=== PATIENT | male | born 1950 | race Caucasian/White ===

== ENCOUNTER 2016-11-27 10:25 | Inpatient (IN) | payer OTHER ==
[2016-11-27] MEDS ORDERED: SODIUM CHLORIDE 0.9% 10 ML FLUSH FLUSH PRN (11:40)
[2016-11-27] MEDS ORDERED: DILTIAZEM 25 MG/5 ML VIAL IV ONE ×2 (11:45→11:46)
--- NOTE | 2016-11-27 11:52 | EDPRACDOC ---
- General Information Information Source: Patient Mode Of Arrival: Car - History of Present Illness Onset: 3 WEEKS HPI: Pt c/o bilateral leg swelling x 3 weeks. Pt states increased SOB, generalized weakness, NELSON. Denies fever, cough, congestion, cp, abd pain, n/v, changes in bowel or bladder, rash. Pt states currently on 40mg lasix daily. Denies hx of A fib Mechanism: Reports: Unknown Circumstances: Reports: Spontaneous History of: Reports: None Severity: Reports: Moderate, Severe Able to Bear Weight: Limited Associated Signs & Symptoms: Reports: Swelling Pain In: Reports: Foot, Ankle, Leg, Knee <Noemí Hayden - Last Filed: 11/27/16 13:15> <Jonny Domingo - Last Filed: 11/27/16 14:05> - General Information Chief Complaint: Generalized Weakness Stated Complaint: EXTRIMITY PAIN/SWELLING Home Medications: Home Medications Glimepiride [Amaryl] 4 mg PO DAILY 11/30/12 MetFORMIN (Immediate Release) [GLUCOPHAGE Immed Release] 1,000 mg PO BID Valsartan [Diovan] 40 mg PO DAILY 11/30/12 Warfarin Sodium [Coumadin] 10 mg PO DAILY 11/30/12 Ferrous Sulfate [Feosol] 325 mg PO DAILY 11/27/16 Furosemide [Lasix] 20 mg PO DAILY 11/27/16 Allergies/Adverse Reactions: Allergies Allergy/AdvReac Type Severity Reaction Status Date / Time No Known Allergies Allergy Verified 11/27/16 13:21 ED Past Medical History - History Reviewed Yes Nurses notes reviewed and agree except as marked - Patient Medical History Neurological History: Reports: Cerebrovascular Accident Cardiac History: Reports: Hypertension, Cardiac Catheterization Systemic History: Reports: Cancer Surgical History: Reports: Cardiac Catheterization - Family Medical History Reports: Hypertension (daughter), Cancer (father-lung, mother, pancreatatic), Cardiac Disorders (grandfather-[place]). Denies: Diabetes, Stroke <Noemí Hayden - Last Filed: 11/27/16 13:15> EDM Review of Systems - Review of Systems Constitutional: Weakness Ears: No Symptoms Reported. negative: Pain, Hearing Loss, Drainage, Ear Pulling Throat: No Symptoms Reported. negative: Pain, Swelling Nose: No Symptoms Reported. negative: Congestion, Bleeding, Discharge, Injection, Swelling, Deformity, Ecchymosis, Tender, Abrasion, Laceration Mouth: No Symptoms Reported. negative: Pain, Drooling Respiratory: Shortness of Breath Cardiovascular: Edema. negative: No Symptoms Reported, Chest Pain, Cyanosis, Orthopnea, Palpitations, PND, Syncope, Skin Mottling Gastrointestinal: No Symptoms Reported. negative: Pain, Constipation, Nausea, Vomiting, Diarrhea, Melena, Formula Intolerance Genitourinary: No Symptoms Reported. negative: Dysuria, Hematuria, Frequency, Discharge, Bleeding, Testicular Pain, Neurological: No Symptoms Reported. negative: Headache, Dizziness, Seizure, Numbness, Weakness, Speech Difficulty, Gait Difficulty Musculoskeletal: Leg. negative: No Symptoms Reported, Arm, Ankle, Back, Chestwall, Elbow, Forearm, Femur, Foot, Hand, Hip, Knee, Neck, Pelvis, Ribs, Shoulder, Wrist Integumentary: No Symptoms Reported. negative: Itching, Rash, Bruising, Wound Allergic/Immunologic: No Symptoms Reported. negative: Hives, Itching Hematologic: No Symptoms Reported. negative: Lymphadenopathy, Easy Bruising, Easy Bleeding Psychiatric: No Symptoms Reported. negative: Anxiety, Depression, Hallucinations, Insomnia, Suicidal <Hayden,Kate Denae - Last Filed: 11/27/16 13:15> - Physical Exam Constitutional: Alert, Distress (moderate) Oriented to: Time, Person, Place Last recorded Vital Signs: Last Vital Signs Temp 97.5 F 11/27/16 11:16 Pulse 155 H 11/27/16 11:16 Resp 18 11/27/16 11:16 BP 249/144 H 11/27/16 11:16 Pulse Ox Oxygen Pulse Oxygen Saturation O2 Device Room Air Oxygen Flow Rate Fraction of Inspired Oxygen ( FIO2) - HEENT Head: Normal ( normocephalic) Eye Exam: Normal (PERRL, EOMI, Sclera white) Neck: Normal (FROM, trachea at midline) - Respiratory/Cardiovascular Respiratory: Rales Cardiovascular: Tachycardia, Irregular - GI Auscultation: Normal (NABS) Palpation: Normal (Soft,No rebound or guarding, non distended) Tenderness: Non tender - Musculoskeletal Back: Normal (Non-Tender) Extremities: Edema (+3 pitting edema bilateral legs, bilateral hands +1 edema) - Integumentary Skin: Normal, Warm, Dry Lymphatics: Normal (no adenopathy) - Neurologic Memory Impaired: Normal Motor Function: Normal (Normal tone, Pulses 2+ No cyanosis or edema, FROM) Mood Description: Normal Perception: Normal <Noemí Hayden - Last Filed: 11/27/16 13:15> - Physical Exam Last recorded Vital Signs: Last Vital Signs Temp 97.5 F 11/27/16 11:16 Pulse 126 H 11/27/16 13:16 Resp 19 11/27/16 13:16 BP 94/52 L 11/27/16 13:16 Pulse Ox 99 11/27/16 13:16 Oxygen Pulse Oxygen Saturation 99 O2 Device Nasal Cannula Oxygen Flow Rate 2 Fraction of Inspired Oxygen ( FIO2) <Jonny Domingo - Last Filed: 11/27/16 14:05> ED Low Extremities Phys Exam - Knee Bilateral Knee Symptoms: Swelling Knee Ligaments: Normal Knee Meniscus: Normal - Lower Leg Bilateral Lower Leg Symptoms: Swelling, Moderate Tenderness - Foot Bilateral Foot Symptoms: Swelling - Ankle Bilateral Ankle Symptoms: Swelling Achilles Tendon: Normal - Deficits Deficits: None - Integumentary Bilateral Lower Leg Skin: Normal Lymphatics: Normal <Noemí Hayden - Last Filed: 11/27/16 13:15> - Differential Diagnosis Other (CHF, AFIB, resp distress) - Results 11/27/16 11:25 11/27/16 11:25 11/27/16 13:13 Laboratory Results - last 24 hr 11/27/16 11/27/16 11/27/16 11:25 11:25 12:05 WBC 9.4 RBC 3.90 L Hgb 9.4 L Hct 30.3 L MCV 78 L MCH 24.0 L MCHC 31.0 L RDW 19.1 H Plt Count 390 MPV 8.4 Neut % (Auto) 81.4 H Lymph % (Auto) 11.7 L [place] % (Auto) 6.3 Eos % (Auto) 0.2 Baso % (Auto) 0.4 Absolute Neuts (auto) 7.61 Absolute Lymphs (auto) 1.03 Puncture Site Right radial pH 7.450 pCO2 25.0 L pO2 84.0 HCO3 17.4 L Total CO2 18.2 L Base Excess -4.9 L FiO2 % Room air Specimen Drawn By Davegi Sodium 132 L Potassium 4.2 Chloride 99 Carbon Dioxide 19 L Anion Gap 18 H BUN 45 H Creatinine 1.20 Estimated GFR (MDRD) > 60 Glucose 259 H Calculated Osmolality 276 Lactic Acid Calcium 8.9 Corrected Calcium 9.6 Total Bilirubin 3.1 H AST 42 ALT 77 H Alkaline Phosphatase 92 Creatine Kinase 84 Troponin I 0.03 Snz-A-Rjfevydlwmh Pept 7040 H Total Protein 6.4 Albumin 3.3 L 11/27/16 12:15 WBC RBC Hgb Hct MCV MCH MCHC RDW Plt Count MPV Neut % (Auto) Lymph % (Auto) [place] % (Auto) Eos % (Auto) Baso % (Auto) Absolute Neuts (auto) Absolute Lymphs (auto) Puncture Site pH pCO2 pO2 HCO3 Total CO2 Base Excess FiO2 % Specimen Drawn By Sodium Potassium Chloride Carbon Dioxide Anion Gap BUN Creatinine Estimated GFR (MDRD) Glucose Calculated Osmolality Lactic Acid 3.6 H Calcium Corrected Calcium Total Bilirubin AST ALT Alkaline Phosphatase Creatine Kinase Troponin I Umg-Y-Ahmakfzfwkl Pept Total Protein Albumin - EKG EKG #1 EKG Time: 11:27 Rate: bpm: 148 [place]: LAD Rhythm: Afib (with RVR) Block: None ST: Nonsp Comparison: 11/30/12 - Diagnostic Imaging Chest Image interpreted by: Radiologist IMPRESSION: No acute cardiopulmonary abnormality seen. <Noemí Hayden - Last Filed: 11/27/16 13:15> - Results 11/27/16 11:25 11/27/16 11:25 WBC 9.4 xk/uL (3.8-10.8) 11/27/16 11:25 RBC 3.90 xM/uL (4.70-6.10) L 11/27/16 11:25 Hgb 9.4 g/dL (14.0-18.0) L 11/27/16 11:25 Hct 30.3 % (42-52) L 11/27/16 11:25 MCV 78 fL (80-94) L 11/27/16 11:25 MCH 24.0 pg (27-32) L 11/27/16 11:25 MCHC 31.0 g/dl (33-36) L 11/27/16 11:25 RDW 19.1 % (11.5-14.5) H 11/27/16 11:25 Plt Count 390 xk/uL (130-400) 11/27/16 11:25 MPV 8.4 fL (7.4-10.4) 11/27/16 11:25 Neut % (Auto) 81.4 % (45-76) H 11/27/16 11:25 Lymph % (Auto) 11.7 % (17-44) L 11/27/16 11:25 [place] % (Auto) 6.3 % (3-10) 11/27/16 11:25 Eos % (Auto) 0.2 % (0-5) 11/27/16 11:25 Baso % (Auto) 0.4 % (0-2) 11/27/16 11:25 Absolute Neuts (auto) 7.61 xk/uL (1.7-8.2) 11/27/16 11:25 Absolute Lymphs (auto) 1.03 xk/uL (0.65-4.75) 11/27/16 11:25 PT > 200.0 SEC (9.2-11.2) H 11/27/16 11:25 INR > 20.0 H* 11/27/16 11:25 APTT 70.4 SEC (22-35) H 11/27/16 11:25 Puncture Site Right radial 11/27/16 12:05 pH 7.450 pH UNITS (7.35-7.45) 11/27/16 12:05 pCO2 25.0 mmHg (35-45) L 11/27/16 12:05 pO2 84.0 mmHg (80-100) 11/27/16 12:05 HCO3 17.4 MMOL/L (22-26) L 11/27/16 12:05 Total CO2 18.2 MMOL/L (23-27) L 11/27/16 12:05 Base Excess -4.9 (+/- 2) L 11/27/16 12:05 FiO2 % Room air 11/27/16 12:05 Specimen Drawn By Allgi 11/27/16 12:05 Sodium 132 mEq/L (137-146) L 11/27/16 11:25 Potassium 4.2 mEq/L (3.5-5.1) 11/27/16 11:25 Chloride 99 mEq/L (98-107) 11/27/16 11:25 Carbon Dioxide 19 mMOL/L (22-33) L 11/27/16 11:25 Anion Gap 18 mEq/L (8-16) H 11/27/16 11:25 BUN 45 MG/DL (9-20) H 11/27/16 11:25 Creatinine 1.20 MG/DL (0.66-1.25) 11/27/16 11:25 Estimated GFR (MDRD) > 60 mL/min (>=60) 11/27/16 11:25 Glucose 259 MG/DL (70-99) H 11/27/16 11:25 Calculated Osmolality 276 MOs/Kg (270-290) 11/27/16 11:25 Lactic Acid 3.6 mEq/L (0.7-2.1) H 11/27/16 12:15 Calcium 8.9 MG/DL (8.4-10.2) 11/27/16 11:25 Corrected Calcium 9.6 MG/DL (8.4-10.2) 11/27/16 11:25 Total Bilirubin 3.1 MG/DL (0.2-1.3) H 11/27/16 11:25 AST 42 IU/L (17-59) 11/27/16 11:25 ALT 77 IU/L (21-72) H 11/27/16 11:25 Alkaline Phosphatase 92 IU/L (50-160) 11/27/16 11:25 Creatine Kinase 84 IU/L (55-170) 11/27/16 11:25 Troponin I 0.03 ng/mL (<.04) 11/27/16 11:25 Gmy-G-Yfabxbovdzb Pept 7040 pg/mL (0-900) H 11/27/16 11:25 Total Protein 6.4 G/DL (6.3-8.2) 11/27/16 11:25 Albumin 3.3 G/DL (3.5-5.0) L 11/27/16 11:25 Lab Results 11/27/16 11/27/16 11/27/16 12:15 12:05 11:25 WBC RBC Hgb Hct MCV MCH MCHC RDW Plt Count MPV Neut % (Auto) Lymph % (Auto) [place] % (Auto) Eos % (Auto) Baso % (Auto) Absolute Neuts (auto) Absolute Lymphs (auto) PT > 200.0 H INR > 20.0 H* APTT 70.4 H Puncture Site Right radial pH 7.450 pCO2 25.0 L pO2 84.0 HCO3 17.4 L Total CO2 18.2 L Base Excess -4.9 L FiO2 % Room air Specimen Drawn By Allgi Sodium Potassium Chloride Carbon Dioxide Anion Gap BUN Creatinine Estimated GFR (MDRD) Glucose Calculated Osmolality Lactic Acid 3.6 H Calcium Corrected Calcium Total Bilirubin AST ALT Alkaline Phosphatase Creatine Kinase Troponin I Yeu-K-Gcqsapyvcod Pept Total Protein Albumin 11/27/16 11/27/16 11:25 11:25 WBC 9.4 RBC 3.90 L Hgb 9.4 L Hct 30.3 L MCV 78 L MCH 24.0 L MCHC 31.0 L RDW 19.1 H Plt Count 390 MPV 8.4 Neut % (Auto) 81.4 H Lymph % (Auto) 11.7 L [place] % (Auto) 6.3 Eos % (Auto) 0.2 Baso % (Auto) 0.4 Absolute Neuts (auto) 7.61 Absolute Lymphs (auto) 1.03 PT INR APTT Puncture Site pH pCO2 pO2 HCO3 Total CO2 Base Excess FiO2 % Specimen Drawn By Sodium 132 L Potassium 4.2 Chloride 99 Carbon Dioxide 19 L Anion Gap 18 H BUN 45 H Creatinine 1.20 Estimated GFR (MDRD) > 60 Glucose 259 H Calculated Osmolality 276 Lactic Acid Calcium 8.9 Corrected Calcium 9.6 Total Bilirubin 3.1 H AST 42 ALT 77 H Alkaline Phosphatase 92 Creatine Kinase 84 Troponin I 0.03 Fic-Q-Ttcnzbwgcwk Pept 7040 H Total Protein 6.4 Albumin 3.3 L - Diagnostic Imaging Chest MD NOTE REPEATEDLY ASKED FOR BP'S; PT HAS AFIB AND ON A CARDIZEM DRIP <Jonny Domingo - Last Filed: 11/27/16 14:05> - Departure Disposition: Admit IP To This Hospital Education/Counseling Given To: Patient Education/Counseling Given Regarding: Diagnosis, Treatment Decision to Admit Time: 13:14 Decision to admit date: 11/27/16 Decision to admit: from ED - Physician Consulted Hospitalist Time Called: 13:14 Provider Called: Andree Sotelo (Dr Domingo contacted for admission) <Noemí Hayden - Last Filed: 11/27/16 13:15> - Departure Yes I personally saw and evaluated the patient. Disposition: Admit IP To This Hospital <Jonny Domingo - Last Filed: 11/27/16 14:05> - Departure Final Diagnosis: Atrial fibrillation with RVR, Pedal edema, Lactic acidosis, Supratherapeutic INR Instructions: Weakness (General), Atrial Fibrillation (ED) Referrals: Rosanna Hernández DO [Primary Care Provider] - One Week Forms: ED Discharge Instructions
[2016-11-27] MEDS ORDERED: NS 1,000 ML IV ONE ×2 (12:07→12:49)
[2016-11-27 12:09] LABS: ABG Draw Site Right Radial; ALLEN'S TEST PASS; BEb -4.9 (+/- 2); TCO2 18.2 MMOL/L (23-27)
[2016-11-27] MEDS: Diltiazem HCl 100 MG in D5W 100 ML IV SCH ×2 (12:16→21:12)
[2016-11-27 12:17] LABS: AUTOMATED BASOPHIL 0.4 % (0-2); AUTOMATED EOSINOPHIL 0.2 % (0-5); AUTOMATED LYMPH 11.7 % (17-44); AUTOMATED MONOCYTE 6.3 % (3-10); AUTOMATED NEUTROPHIL 81.4 % (45-76); MPV 8.4 fL (7.4-10.4)
[2016-11-27 12:27] LABS: BLOOD UREA NITROGEN 45 MG/DL (9-20); CALC CORRECTED 9.6 MG/DL (8.4-10.2); CALCIUM 8.9 MG/DL (8.4-10.2); CALCULATED OSMOLALITY 276 MOs/Kg (270-290); CHLORIDE 99 mEq/L (98-107); CPK TOTAL WITH POSSIBLE MB 84 IU/L (55-170); GLUCOSE 259 MG/DL (70-99); SODIUM LEVEL 132 mEq/L (137-146); TOTAL PROTEIN 6.4 G/DL (6.3-8.2)
[2016-11-27 12:32] LABS: PARTIAL THROMB. TIME 70.4 SEC (22-35)
--- NOTE | 2016-11-27 12:52 | DIRPT ---
CLINICAL DATA: Sepsis. EXAM: PORTABLE CHEST 1 VIEW COMPARISON: November 12, 2016. FINDINGS: Stable cardiomegaly. Status post cardiac valve repair. No pneumothorax or pleural effusion is noted. No acute pulmonary disease is noted. Bony thorax is unremarkable. IMPRESSION: No acute cardiopulmonary abnormality seen. Electronically Signed By: Zeyad Nielsen Jr, M.D. On: 11/27/2016 12:49
[2016-11-27 13:14] LABS: PT-INR > 20.0
[2016-11-27] MEDS ORDERED: PHYTONADIONE 10 MG in NS 50 ML IV ONE (13:30)
[2016-11-27] MEDS ORDERED: Albuterol/Ipratropium Neb 3 ML NEB NEB PRN (14:15)
[2016-11-27] MEDS ORDERED: GLUCAGON 1 MG VIAL SQ PRN (14:20)
[2016-11-27] MEDS ORDERED: DEXTROSE 25 GM/50 ML PFS IV PRN (14:20)
[2016-11-27] MEDS ORDERED: DIGOXIN 0.5 MG/2 ML (250 MCG /ML) AMPULE IV ONE (14:22)
[2016-11-27] MEDS ORDERED: PHYTONADIONE 5 MG TAB PO STA (14:23)
--- NOTE | 2016-11-27 14:27 | HISTPHYS ---
- Chief Complaint sob, weakness, - History of Present Illness 66 yowm presented to emergency room early on today for evaluation of progressivelly worsening leg swelling and dyspnea. Patient reports that he has gained quite a bit of weight lately, he has noticed progressively worsening swelling of both lower extremities. Recently he has been feeling profoundly weak tired and very fatigued, he also reports PND and orthopnea and profound dyspnea with minimal physical exertion. He denies any chest discomfort but reports episodes of palpitations and feeling dizzy and lightheaded, no syncope or near syncope. Upon arrival in ED patient was found to be in atrial fibrillation with rapid ventricular rate, he was also found massively fluid overloaded. His INR was found to be greater than 20. Medical consultation was phoned in for inpatient treatment. - Medical History Cardiac History: Reports: Coronary Artery Disease, Hypertension, Cardiac Catheterization, Hypercholesterolemia, Valvular Heart Disease Respiratory History: Reports: No Significant History, Pneumonia GI/ History: Reports: Gastroesophageal Reflux, BPH Musculoskeletal History: Reports: Osteoarthritis Systemic History: Reports: Cancer Neurological History: Reports: Cerebrovascular Accident Psychological History: Reports: Depression, Anxiety - Surgical History Reports: Cardiac Catheterization, Other (AVR in 1996, partial colectomy for colon cancer. Port placement and removal) - Medictions/Allergies Allergies No Known Allergies Allergy (Verified 11/27/16 13:21) Current Medication List: Reviewed Home Medications Glimepiride [Amaryl] 4 mg PO DAILY 11/30/12 MetFORMIN (Immediate Release) [GLUCOPHAGE Immed Release] 1,000 mg PO BID Valsartan [Diovan] 40 mg PO DAILY 11/30/12 Warfarin Sodium [Coumadin] 10 mg PO DAILY 11/30/12 Ferrous Sulfate [Feosol] 325 mg PO DAILY 11/27/16 Furosemide [Lasix] 20 mg PO DAILY 11/27/16 - Family History Reports: Hypertension (daughter), Cancer (father-lung, mother, pancreatatic), Cardiac Disorders (grandfather-[place]), Other (Father due to lung cancer mother due to pancreatic cancer). Denies: Diabetes, Stroke - Social History Lives: With Family Smoking Status: Never smoker - Review of Systems Constitutional: Diaphoresis, Fatigue, Loss of Appetite, Weakness, Weight gain Eyes: No Symptoms Reported Ears: No Symptoms Reported Nose: No Symptoms Reported Mouth: No Symptoms Reported Throat/Neck: No Symptoms Reported Respiratory: Cough, Shortness of Breath, Wheezing, Dyspnea Cardiovascular: Edema, Orthopnea, Palpitations, PND Gastrointestinal: Constipation, Heartburn Genitourinary: No Symptoms Reported, Nocturia Neurological: No Symptoms Reported Musculoskeletal:: Arthritis Integumentary: No Symptoms Reported Allergic/Immunologic: No Symptoms Reported Hematologic: No Symptoms Reported Endocrine: No Symptoms Reported Psychiatric: No Symptoms Reported - Physical Exam Vital Signs: Initial Vitals Temperature 97.5 F 11/27/16 11:16 Pulse Rate 155 H 11/27/16 11:16 Respiratory Rate 18 11/27/16 11:16 Blood Pressure 249/144 H 11/27/16 11:16 Constitutional: Alert, Distress Oriented to: Time, Person, Place - HEENT Head: Normal Eye: Normal Oropharynx: Normal ENT EAC: Normal TMJ: Normal Nose: No Symptoms Reported Respiratory: Accessory Muscle Use, Diminished, Rales, Wheezes Cardiovascular: Tachycardia, Irregular - GI Auscultation: Normal Palpation: Normal Tenderness: Non tender Rectal Exam: Deferred - Exam Deferred: Yes - Musculoskeletal Back: Normal Extremities: Edema Spine: limited range of motion - Integumentary Skin: Normal, Warm, Dry Lymphatics: Normal - Neurologic Memory Impaired: Normal Motor Function: Abnormal Cranial Nerve: Normal Cerebellar: Normal Mood Description: Anxious Thought: Coherent Perception: Normal - Focused CV Perfusion Exam Vital Signs: Last Vital Signs Temp 97.5 F 11/27/16 11:16 Pulse 117 11/27/16 14:17 Resp 18 11/27/16 14:17 BP 90/50 L 11/27/16 14:17 Pulse Ox 98 11/27/16 14:17 - Diagnostic Findings Initial Vitals Temperature 97.5 F 11/27/16 11:16 Pulse Rate 155 H 11/27/16 11:16 Respiratory Rate 18 11/27/16 11:16 Blood Pressure 249/144 H 11/27/16 11:16 Allergies No Known Allergies Allergy (Verified 11/27/16 13:21) Last Vital Signs Temp 97.5 F 11/27/16 11:16 Pulse 117 11/27/16 14:17 Resp 18 11/27/16 14:17 BP 90/50 L 11/27/16 14:17 Pulse Ox 98 11/27/16 14:17 11/27/16 11:25 11/27/16 11:25 Abnormal Lab Results 11/27/16 11/27/16 11/27/16 11:25 11:25 11:25 RBC 3.90 L Hgb 9.4 L Hct 30.3 L MCV 78 L MCH 24.0 L MCHC 31.0 L RDW 19.1 H Neut % (Auto) 81.4 H Lymph % (Auto) 11.7 L PT > 200.0 H INR > 20.0 H* APTT 70.4 H pCO2 HCO3 Total CO2 Base Excess Sodium 132 L Carbon Dioxide 19 L Anion Gap 18 H BUN 45 H Glucose 259 H Lactic Acid Total Bilirubin 3.1 H ALT 77 H Mlu-K-Bmwkykefzyu Pept 7040 H Albumin 3.3 L 11/27/16 11/27/16 12:05 12:15 RBC Hgb Hct MCV MCH MCHC RDW Neut % (Auto) Lymph % (Auto) PT INR APTT pCO2 25.0 L HCO3 17.4 L Total CO2 18.2 L Base Excess -4.9 L Sodium Carbon Dioxide Anion Gap BUN Glucose Lactic Acid 3.6 H Total Bilirubin ALT Aqt-X-Lowwlzcxgsf Pept Albumin Patient Name: VIKTORIYA DWYER LOC: ED : 1950 AGE: 66 Order Date:11/27/16 Date of Service: Report # [id number] Ord Physician: Noemí Hayden Exam # [id number] Emergency Physician: Will Domingo MD Exam(s): [id number] RAD/DG CHEST PORTABLE CLINICAL DATA: Sepsis. EXAM: PORTABLE CHEST 1 VIEW COMPARISON: November 12, 2016. FINDINGS: Stable cardiomegaly. Status post cardiac valve repair. No pneumothorax or pleural effusion is noted. No acute pulmonary disease is noted. Bony thorax is unremarkable. IMPRESSION: No acute cardiopulmonary abnormality seen. Electronically Signed EKG: afib,ns stt changes - Assessment (1) CHF, acute I50.9 - HEART FAILURE, UNSPECIFIED Acute Present on Admission: Yes Qualifiers: Congestive heart failure type: systolic Qualified Code(s): I50.21 - Acute systolic (congestive) heart failure Patient will be admitted to step-down unit. Treatment with IV diuretic will be instituted. CHF education will be provided. Monitor fluid balance and weight. 2D echo will be obtained along with a cardiology consultation. (2) Atrial fibrillation with RVR I48.91 - UNSPECIFIED ATRIAL FIBRILLATION Acute Present on Admission: Yes Continue IV Cardizem, keep K more than 4 magnesium more than 2. (3) Supratherapeutic INR R79.1 - ABNORMAL COAGULATION PROFILE Acute Present on Admission: Yes Vitamin K has been given to the patient. Recheck PT and INR morning (4) Anemia D64.9 - ANEMIA, UNSPECIFIED Acute Present on Admission: Yes Qualifiers: Anemia type: unspecified type Qualified Code(s): D64.9 - Anemia, unspecified Monitor counts obtain B12 folic acid and iron studies. (5) DM2 (diabetes mellitus, type 2) E11.9 - TYPE 2 DIABETES MELLITUS WITHOUT COMPLICATIONS Chronic Present on Admission: Yes Qualifiers: Diabetes mellitus complication status: with neurologic complications Continue oral agents and ADA diet ,continue sliding scale and Accu-Cheks. (6) UTI (urinary tract infection) N39.0 - URINARY TRACT INFECTION, SITE NOT SPECIFIED Acute Present on Admission: Yes Qualifiers: Urinary tract infection type: acute cystitis Hematuria presence: without hematuria Qualified Code(s): N30.00 - Acute cystitis without hematuria Await urine culture. Start IV Rocephin Case Care Discussed with: Patient, Consultants, Family, Nursing Staff Total Time: 60 min . Critical Care: No Code: 10314
[2016-11-27 15:55] LABS: FREE T3 2.23 pg/mL (2.77-5.27); FREE T4 1.33 ng/dL (0.78-2.19)
[2016-11-27 16:09] LABS: hTSH 3.88 uIU/mL (0.5-4.67)
--- NOTE | 2016-11-27 16:44 | CAPUECHO ---
INDICATION: CHF HEIGHT: 177.8 cm (5 ft 10.0 in) WEIGHT: 97.5 kg (215.0 lbs) BP: 90/50 BSA: 2.541011 m MEASUREMENTS 2D RVIDd: 3.9 cm LA Diam: 5.1 cm EF Biplane: 15.25 % LAESV MOD A4C: 65.4 ml LAESV MOD A2C: 84.9 ml LAESV Index (A-L): 39.72 ml/m M-MODE IVSd: 1.0 cm LVIDd: 6.3 cm LVPWd: 1.0 cm LVIDs: 5.7 cm EF(Teich): 18 % Ao Diam: 3.0 cm DOPPLER LVOT Vmax: 1.21 m/s AV Vmax: 1.72 m/s TR Vmax: 2.26 m/s TR maxP mmHg RVSP: 40.47 mmHg FINDINGS ------- Procedure:2D images, m-mode, color and spectral Doppler were obtained and reviewed. ECG rhythm:Atrial fibrillation. Study quality:This was a technically adequate study. Left Ventricle:The left ventricle is mildly dilated. Left ventricular wall thickness is normal. Overall left ventricular systolic function is severely impaired with, an EF < 20%. No regional wal l motion abnormalities were noted. Right Ventricle:The right ventricle is moderately enlarged. The right ventricular systolic functio n is severely impaired. Left Atrium:Left atrium is mildly dilated by volume. Right Atrium:The right atrium is markedly enlarged. ASD/VSD:Mobile interatrial septum. Aortic Valve:Normally functioning mechanical prosthetic valve. Mitral Valve:Normal appearing mitral valve. Moderate multi-jet mitral regurgitation is present. Tricuspid Valve:The tricuspid valve appears structurally normal. Mild tricuspid regurgitation pres ent. The right ventricular systolic pressure, as measured by Doppler, is 40 mmHg. Pulmonic Valve:The pulmonic valve is normal. Mild pulmonic regurgitation. Aorta:The aortic root, ascending aorta and aortic arch appear normal. IVC:The inferior vena cava is dilated with no significant inspiratory collapse which is consistent e stimated right atrial pressure of >20 mmHg. Pericardium:There is no pericardial effusion. CONCLUSIONS 1. Atrial fibrillation. 2. The left ventricle is mildly dilated. 3. Overall left ventricular systolic function is severely impaired with, an EF < 20%. 4. The right ventricle is moderately enlarged. 5. The right ventricular systolic function is severely impaired. 6. Left atrium is mildly dilated by volume. 7. The right atrium is markedly enlarged. 8. Normally functioning mechanical prosthetic valve. 9. Moderate multi-jet mitral regurgitation is present. 10. Mild tricuspid regurgitation present. Electronically Signed By: Zac Zurita MD -- Electronically Signed On: 16:44:13
[2016-11-27 17:09] LABS: LEUKOCYTES/URINE TRACE (NEGATIVE); NITRITE/URINE NEG (NEGATIVE); URINE OCCULT BLOOD NEG (NEG/TRACE)
[2016-11-27] MEDS: NS 1,000 ML IV SCH (17:59)
[2016-11-27] MEDS: REGULAR INSULIN 100 UNITS/ML - 3 ML VIAL SQ SCH ×2 (18:16→23:12)
[2016-11-27] MEDS: POTASSIUM CHLORIDE 20 MEQ TAB PO SCH (18:17)
[2016-11-27] MEDS: MetFORMIN 1000 MG IMMED REL TAB PO SCH (18:17)
--- NOTE | 2016-11-27 18:19 | PCM.CARDCO ---
Consultation Date: 11/27/16 Requesting Physician: Jean Kennedy Worker'S Compensation Claims Examiner: Zac Zurita Consult Reason: CHF - History of Present Illness Patient is a 66-year-old male. He has past medical history of aortic valve replacement which she says was approximately 2 decades ago. He came into the hospital with shortness of breath and was found to be in congestive heart failure. He has gross anasarca and seems like has not taken good care of himself. He does not see the booking officer on a regular basis and tells me that he is to see 1 of my partners many years ago. At the time of my evaluation is alert awake oriented comfortable and in no distress and his is at the bedside. He denies any chest pain. Chief Complaint: sob, weakness, - Past Medical and Surgical History Cardiac History: Reports: Hypertension, Cardiac Catheterization Psychological History: Denies: Depression Neurological History: Reports: Cerebrovascular Accident (1999) Past Surgical History: Reports: Cardiac Catheterization Allergies No Known Allergies Allergy (Verified 11/27/16 13:21) Home Medications Glimepiride [Amaryl] 4 mg PO DAILY 11/30/12 MetFORMIN (Immediate Release) [GLUCOPHAGE Immed Release] 1,000 mg PO BID Valsartan [Diovan] 40 mg PO DAILY 11/30/12 Warfarin Sodium [Coumadin] 10 mg PO DAILY 11/30/12 Ferrous Sulfate [Feosol] 325 mg PO DAILY 11/27/16 Furosemide [Lasix] 20 mg PO DAILY 11/27/16 - Social History Travel Outside of [place] in the Last 3 Months?: No Smoking Status: Never smoker - Family History Reports: Hypertension (daughter), Cancer (father-lung, mother, pancreatatic), Cardiac Disorders (grandfather-[place]). Denies: Diabetes, Stroke - Review of Systems Constitutional: Weakness - Physical Exam Constitutional: Alert, Distress (moderate) Oriented to: Time, Person, Place Exam: Last Vital Signs Temp 97.5 F 11/27/16 11:16 Pulse 100 11/27/16 18:13 Resp 17 11/27/16 18:13 BP 88/58 L 11/27/16 18:13 Pulse Ox 98 11/27/16 18:13 - HEENT Head: Normal ( normocephalic) Eye: Normal (PERRL, EOMI, Sclera white) Nose: No Symptoms Reported. negative: Congestion, Bleeding, Discharge, Injection, Swelling, Deformity, Ecchymosis, Tender, Abrasion, Laceration - Respiratory/Cardiovascular Respiratory: Rales Cardiovascular: Other (Cardiac auscultation S1-S2 irregular 2/6 systolic murmur at the apex. Prosthetic valve metallic sounds heard) - GI Auscultation: Normal (NABS) Palpation: Normal (Soft,No rebound or guarding, non distended) Tenderness: Non tender - Musculoskeletal Back: Normal (Non-Tender) Extremities: Edema (+3 pitting edema bilateral legs, bilateral hands +1 edema) - Integumentary Skin: Normal, Warm, Dry Lymphatics: Normal (no adenopathy) - Neurologic Memory Impaired: Normal Mood Description: Normal Perception: Normal - Other Exam Other Exam Findings: Abdomen is nontender. No cyanosis or clubbing on extremity evaluation. There is 3+ pedal edema. Patient moves all extremities. - Assessment/Plan (1) Atrial fibrillation with RVR I48.91 - UNSPECIFIED ATRIAL FIBRILLATION Acute Comment: Heart rates are markedly elevated. This is contributing to his congestive heart failure issues. Patient is on diltiazem drip and we will continue this. Once his heart rates are better I will discontinue the drip and once his better from congestive heart failure I wish to begin him on carvedilol in view of his advanced cardiomyopathy. (2) CHF, acute I50.9 - HEART FAILURE, UNSPECIFIED Acute systolic I50.21 - Acute systolic (congestive) heart failure Comment: Patient is in significant congestive heart failure and is receiving diuretic therapy appropriately and we will continue this. Congestive heart failure education was given to him and his at length. Precautions were advised. (3) DM2 (diabetes mellitus, type 2) E11.9 - TYPE 2 DIABETES MELLITUS WITHOUT COMPLICATIONS Acute with neurologic complications Comment: Diet was discussed. (4) Supratherapeutic INR R79.1 - ABNORMAL COAGULATION PROFILE Acute Comment: Monitored by the hospitalist. Patient has received vitamin K and will be followed closely especially in view of prosthetic metallic I will take well. (5) Cardiomyopathy I42.9 - CARDIOMYOPATHY, UNSPECIFIED Acute Comment: This finding was discussed with him and his at extensive length. The grave nature of advanced cardiomyopathy was understood by them and further recommendations will be made based on the course of the hospital stay. Case Care Discussed with: Patient, Consultants
[2016-11-27] MEDS ORDERED: Vaccine Screening Complete SCH (19:00)
[2016-11-27] MEDS: Albuterol/Ipratropium Neb 3 ML NEB NEB SCH (19:36)
[2016-11-27] MEDS ORDERED: FUROSEMIDE 40 MG/4 ML VIAL IV SCH (22:00)
[2016-11-27] MEDS: FUROSEMIDE 40 MG/4 ML VIAL IV SCH (23:12)
[2016-11-28] MEDS: Albuterol/Ipratropium Neb 3 ML NEB NEB SCH ×4 (01:21→19:19)
[2016-11-28 05:00] LABS: ALLEN'S TEST PASS; BEb -3.8 (+/- 2); TCO2 19.3 MMOL/L (23-27)
[2016-11-28] MEDS: FUROSEMIDE 40 MG/4 ML VIAL IV SCH ×3 (05:15→23:40)
[2016-11-28 05:36] LABS: AUTOMATED BASOPHIL 0.8 % (0-2); AUTOMATED EOSINOPHIL 1.3 % (0-5); AUTOMATED LYMPH 10.4 % (17-44); AUTOMATED MONOCYTE 8.5 % (3-10); MPV 8.6 fL (7.4-10.4)
[2016-11-28 05:43] LABS: PT-INR 2.6
[2016-11-28 05:50] LABS: BLOOD UREA NITROGEN 40 MG/DL (9-20); CHLORIDE 104 mEq/L (98-107); GLUCOSE 56 MG/DL (70-99); SODIUM LEVEL 135 mEq/L (137-146)
[2016-11-28 05:52] LABS: CALCULATED OSMOLALITY 267 MOs/Kg (270-290)
[2016-11-28 05:53] LABS: ABG Draw Site Right Radial
[2016-11-28] MEDS: REGULAR INSULIN 100 UNITS/ML - 3 ML VIAL SQ SCH ×3 (06:30→17:58)
[2016-11-28] MEDS: GLUCOSE (ORAL GEL) 15 GM TUBE PO PRN (06:32)
[2016-11-28] MEDS: MetFORMIN 1000 MG IMMED REL TAB PO SCH ×2 (06:46→16:58)
[2016-11-28] MEDS ORDERED: GLIMEPIRIDE 4 MG TAB PO SCH (07:00)
[2016-11-28] MEDS ORDERED: Magnesium Sulfate 2 gm/D5W 2 GM/50 ML RTU IV ONE (08:00)
[2016-11-28] MEDS ORDERED: FLU VACCINE (Afluria) 0.5 ML DOSE IM ONE (08:00)
[2016-11-28] MEDS ORDERED: PNEUMOCOCCAL 0.5 ML VIAL IM ONE (08:00)
[2016-11-28] MEDS ORDERED: VALSARTAN 80 MG TAB PO SCH (09:00)
[2016-11-28] MEDS: Diltiazem HCl 100 MG in D5W 100 ML IV SCH (09:09)
[2016-11-28] MEDS ORDERED: DIGOXIN 0.5 MG/2 ML (250 MCG /ML) AMPULE IV ONE (09:11)
[2016-11-28] MEDS: POTASSIUM CHLORIDE 20 MEQ TAB PO SCH ×2 (09:17→16:58)
[2016-11-28] MEDS: FERROUS SULFATE 324 MG TAB PO SCH (09:18)
--- NOTE | 2016-11-28 10:21 | GENMEDPROG ---
Subjective Note: Patient in bed responsive follows commands. Looking tired and chronically ill. Had few beats of nonsustained VT, monitor shows AFib with fluctuating rate. Episodes of hypotension last night as well. Denies any cough phlegm production or hemoptysis. Breathing little better. P.o. intake poor no episodes of hypoglycemia. Notes Reviewed: Yes Events from last night noted and discussed with Clinical Staff Current Medication List: Reviewed Currently: Reports: Cough, Wheezing, NELSON, SOB, Sputum, Reflux Sx DVT Prophylaxis: Yes - Physical Examination Vital Signs and I&O: Last Vital Signs Temp 98.0 F 11/28/16 08:31 Pulse 134 H 11/28/16 08:31 Resp 19 11/28/16 08:31 BP 72/50 L 11/28/16 08:31 Pulse Ox 100 11/28/16 08:31 Oxygen Pulse Oxygen Saturation 100 O2 Device Nasal Cannula Oxygen Flow Rate 2 Fraction of Inspired Oxygen ( FIO2) Intake & Output 11/25/16 11/26/16 11/27/16 11/28/16 23:59 23:59 23:59 23:59 Intake Total 880 Output Total 300 1050 Balance -300 -170 Patient's weight 84.482 kg 84.368 kg General: Alert, Oriented x3, Cooperative, Moderate distress HEENT: Normal, PERRLA, EOMI, Anicteric Sclera Neck: Painful range of motion, JVD Lymphatics: Normal Respiratory: Accessory Muscle Use, Diminished, Rales, Wheezes Cardiovascular: Normal S1, Normal S2, Murmurs, Irregular, Other (Metalic click) GI: Normal bowel sounds, Soft, Non tender, No hepatospenomegaly, No masses Extremities/Musculoskeletal: Edema, Cyanosis Skin: Warm,Dry and Intact, No rashes, No breakdown, No significant lesion Neurological: Normal speech, Normal tone, Cranial nerves 3-12 NL Psych/Mental Status: Anxious Lab/DI/Studies Reviewed: Last Vital Signs Temp 98.0 F 11/28/16 08:31 Pulse 134 H 11/28/16 08:31 Resp 19 11/28/16 08:31 BP 72/50 L 11/28/16 08:31 Pulse Ox 100 11/28/16 08:31 Initial Vitals Temperature 97.5 F 11/27/16 11:16 Pulse Rate 155 H 11/27/16 11:16 Respiratory Rate 18 11/27/16 11:16 Blood Pressure 249/144 H 11/27/16 11:16 Allergies No Known Allergies Allergy (Verified 11/27/16 13:21) 11/28/16 04:25 11/28/16 04:25 Abnormal Lab Results 11/27/16 11/27/16 11/27/16 11:25 11:25 11:25 WBC RBC 3.90 L Hgb 9.4 L Hct 30.3 L MCV 78 L MCH 24.0 L MCHC 31.0 L RDW 19.1 H Neut % (Auto) 81.4 H Lymph % (Auto) 11.7 L Absolute Neuts (auto) PT > 200.0 H INR > 20.0 H* APTT 70.4 H pH pCO2 HCO3 Total CO2 Base Excess Sodium 132 L Carbon Dioxide 19 L Anion Gap 18 H BUN 45 H Glucose 259 H POC Capillary Glucose Calculated Osmolality Lactic Acid Calcium Magnesium Total Bilirubin 3.1 H ALT 77 H Arh-C-Ggltbunsswb Pept 7040 H Albumin 3.3 L Free T3 Urine Protein Ur Leukocyte Esterase Urine RBC Urine WBC Urine Bacteria Hyaline Casts 11/27/16 11/27/16 11/27/16 11:25 12:05 12:15 WBC RBC Hgb Hct MCV MCH MCHC RDW Neut % (Auto) Lymph % (Auto) Absolute Neuts (auto) PT INR APTT pH pCO2 25.0 L HCO3 17.4 L Total CO2 18.2 L Base Excess -4.9 L Sodium Carbon Dioxide Anion Gap BUN Glucose POC Capillary Glucose Calculated Osmolality Lactic Acid 3.6 H Calcium Magnesium Total Bilirubin ALT Blc-V-Venqrwpgfza Pept Albumin Free T3 2.23 L Urine Protein Ur Leukocyte Esterase Urine RBC Urine WBC Urine Bacteria Hyaline Casts 11/27/16 11/27/16 11/27/16 16:33 17:25 18:15 WBC RBC Hgb Hct MCV MCH MCHC RDW Neut % (Auto) Lymph % (Auto) Absolute Neuts (auto) PT INR APTT pH pCO2 HCO3 Total CO2 Base Excess Sodium Carbon Dioxide Anion Gap BUN Glucose POC Capillary Glucose 251 H Calculated Osmolality Lactic Acid 4.3 H* Calcium Magnesium Total Bilirubin ALT Dpy-B-Oxrxdphvxwd Pept Albumin Free T3 Urine Protein 1+ H Ur Leukocyte Esterase Trace H Urine RBC 2-5 H Urine WBC 5-10 H Urine Bacteria 4+ H Hyaline Casts 10-20 H 0111/28/16 11/28/16 20:59 04:25 04:25 WBC 11.0 H RBC 3.28 L Hgb 7.9 L D Hct 25.3 L MCV 77 L MCH 24.2 L MCHC 31.3 L RDW 18.9 H Neut % (Auto) 79.0 H Lymph % (Auto) 10.4 L Absolute Neuts (auto) 8.69 H PT INR APTT pH pCO2 HCO3 Total CO2 Base Excess Sodium 135 L Carbon Dioxide 21 L Anion Gap BUN 40 H Glucose 56 L POC Capillary Glucose 232 H Calculated Osmolality 267 L Lactic Acid Calcium 8.0 L Magnesium 1.40 L Total Bilirubin ALT Brv-X-Rytpoaoemdn Pept Albumin Free T3 Urine Protein Ur Leukocyte Esterase Urine RBC Urine WBC Urine Bacteria Hyaline Casts 11/28/16 11/28/16 11/28/16 04:25 04:48 05:49 WBC RBC Hgb Hct MCV MCH MCHC RDW Neut % (Auto) Lymph % (Auto) Absolute Neuts (auto) PT 27.4 H INR APTT pH 7.460 H pCO2 26.0 L HCO3 18.5 L Total CO2 19.3 L Base Excess -3.8 L Sodium Carbon Dioxide Anion Gap BUN Glucose POC Capillary Glucose 67 L Calculated Osmolality Lactic Acid Calcium Magnesium Total Bilirubin ALT Cop-S-Hdljuglfrve Pept Albumin Free T3 Urine Protein Ur Leukocyte Esterase Urine RBC Urine WBC Urine Bacteria Hyaline Casts 11/28/16 06:20 WBC RBC Hgb Hct MCV MCH MCHC RDW Neut % (Auto) Lymph % (Auto) Absolute Neuts (auto) PT INR APTT pH pCO2 HCO3 Total CO2 Base Excess Sodium Carbon Dioxide Anion Gap BUN Glucose POC Capillary Glucose 66 L Calculated Osmolality Lactic Acid Calcium Magnesium Total Bilirubin ALT Nir-X-Qnvelqqtehu Pept Albumin Free T3 Urine Protein Ur Leukocyte Esterase Urine RBC Urine WBC Urine Bacteria Hyaline Casts - Assessment (1) CHF, acute Acute I50.9 - HEART FAILURE, UNSPECIFIED Qualifiers: Congestive heart failure type: combined Qualified Code(s): I50.41 - Acute combined systolic (congestive) and diastolic (congestive) heart failure Comment/Plan: 2D echo shows EF less than 20% and severe right ventricle systolic dysfunction. Will optimize medical regimen. Follow by Cardiology. (2) Atrial fibrillation with RVR Acute I48.91 - UNSPECIFIED ATRIAL FIBRILLATION Comment/Plan: Given episodes of hypotension will discontinue Cardizem and place patient on amiodarone drip with no bolus. Keep K more than 4 magnesium more than 2 (3) Supratherapeutic INR Acute R79.1 - ABNORMAL COAGULATION PROFILE Comment/Plan: INR 2.6 today. Will restart Coumadin (4) Anemia Acute D64.9 - ANEMIA, UNSPECIFIED Qualifiers: Anemia type: unspecified type Qualified Code(s): D64.9 - Anemia, unspecified Comment/Plan: Workup in progress. Will give 1 unit pooled red blood cells transfusion (5) DM2 (diabetes mellitus, type 2) Chronic E11.9 - TYPE 2 DIABETES MELLITUS WITHOUT COMPLICATIONS Qualifiers: Diabetes mellitus complication status: with neurologic complications Comment/Plan: Continue oral agents and ADA diet ,continue sliding scale and Accu -Cheks. (6) UTI (urinary tract infection) Acute N39.0 - URINARY TRACT INFECTION, SITE NOT SPECIFIED Qualifiers: Urinary tract infection type: acute cystitis Hematuria presence: without hematuria Qualified Code(s): N30.00 - Acute cystitis without hematuria Comment/Plan: Await urine culture. Start IV Rocephin Case Care Discussed with: Patient, Consultants, Family, Nursing Staff, Respiratory Therapy, Uniformer Education/Counseling Given To: Patient Education/Counseling Given Regarding: Diagnosis, Treatment, Prognosis, Follow Up Total Time: 55 min . Critical Care: Yes Code: 291
[2016-11-28 10:45] LABS: % SATURATION 3.4 % (20-50)
[2016-11-28] MEDS: AMIODARONE 360 MG/200 ML RTU IV SCH ×2 (11:13→20:38)
--- NOTE | 2016-11-28 11:36 | DIRPT ---
CLINICAL DATA: Respiratory distress EXAM: PORTABLE CHEST 1 VIEW COMPARISON: 11/27/2016 FINDINGS: Sternotomy wires overlie enlarged cardiac silhouette. Elongated density along the LEFT lateral chest wall May represent loculated fluid. This is new from 11/12/2016. Central venous congestion is centrally. IMPRESSION: 1. Potential loculated LEFT effusion. 2. Central venous congestion. Electronically Signed By: Driss Torre M.D. On: 11/28/2016 11:33
[2016-11-28 11:42] LABS: FOLATES 11.1 ng/mL (>2.76)
[2016-11-28] MEDS: CEFTRIAXONE 1 GM in D5W 100 ML IV SCH (13:27)
[2016-11-28] MEDS: FUROSEMIDE 20 MG/2 ML VIAL IV SCH ×3 (14:48→20:38)
[2016-11-28] MEDS: This patient is receiving warfarin therapy SCH (16:54)
--- NOTE | 2016-11-28 16:58 | PCM.CARD ---
- Subjective Current Assessment: No New Symptoms (He mentions to me that he feels a little breath and breathing better.) Vital Signs: Last Vital Signs Temp 97.7 F 11/28/16 16:50 Pulse 109 11/28/16 16:53 Resp 20 11/28/16 16:50 BP 84/63 L 11/28/16 16:50 Pulse Ox 94 11/28/16 16:50 EKG Rhythm: Atrial Fibrillation Heart Sounds: S1 & S2 (Cardiac auscultation unchanged heart sounds irregular lungs bilateral air entry with reduced sounds at the bases and especially on the left side. Pedal edema persisting.) - Assessment/Plan (1) Atrial fibrillation with RVR Acute I48.91 - UNSPECIFIED ATRIAL FIBRILLATION Present on Admission: Yes Comment/Plan: Heart rates are better now. I discussed with the hospitalist about initiating amiodarone and the patient is currently on amiodarone drip. Diltiazem has been discontinued. Also I will give some digitalizing doses which will help heart rate and also the cardiomyopathy issues. (2) CHF, acute Acute I50.9 - HEART FAILURE, UNSPECIFIED Present on Admission: Yes combined I50.41 - Acute combined systolic (congestive) and diastolic ( congestive) heart failure Comment/Plan: Clinically improving though patient will need prolonged intense therapy in view of his general deconditioning and advanced congestive heart failure (3) DM2 (diabetes mellitus, type 2) Chronic E11.9 - TYPE 2 DIABETES MELLITUS WITHOUT COMPLICATIONS Present on Admission: Yes with neurologic complications Comment/Plan: Diet was discussed this is followed by the hospitalist. (4) Supratherapeutic INR Acute R79.1 - ABNORMAL COAGULATION PROFILE Present on Admission: Yes (5) Cardiomyopathy Acute I42.9 - CARDIOMYOPATHY, UNSPECIFIED Comment/Plan: Managed by the hospitalist. INR is therapeutic and warfarin has been initiated. - Plan Anemia and the drop in hemoglobin in spite of diuresis is fairly concerning. This is managed by hospitalist and the patient is receiving blood transfusion.
[2016-11-28] MEDS ORDERED: WARFARIN EDUCATION DOCUMENTATION ONE (17:00)
[2016-11-28] MEDS: DIGOXIN 0.5 MG/2 ML (250 MCG /ML) AMPULE IV SCH ×2 (17:57→23:40)
[2016-11-28] MEDS ORDERED: WARFARIN 5 MG TAB PO SCH (18:00)
[2016-11-29] MEDS: REGULAR INSULIN 100 UNITS/ML - 3 ML VIAL SQ SCH ×5 (00:15→23:12)
[2016-11-29] MEDS: Albuterol/Ipratropium Neb 3 ML NEB NEB SCH ×4 (01:17→19:48)
[2016-11-29 03:15] LABS: AUTOMATED BASOPHIL 0.4 % (0-2); AUTOMATED EOSINOPHIL 1.3 % (0-5); AUTOMATED LYMPH 11.2 % (17-44); AUTOMATED MONOCYTE 7.2 % (3-10); AUTOMATED NEUTROPHIL 79.9 % (45-76); MPV 8.4 fL (7.4-10.4)
[2016-11-29 03:23] LABS: PT-INR 1.8
[2016-11-29 03:27] LABS: BLOOD UREA NITROGEN 32 MG/DL (9-20); CALCIUM 8.4 MG/DL (8.4-10.2); CALCULATED OSMOLALITY 269 MOs/Kg (270-290); CHLORIDE 102 mEq/L (98-107); GLUCOSE 101 MG/DL (70-99); SODIUM LEVEL 136 mEq/L (137-146)
[2016-11-29] MEDS: FUROSEMIDE 40 MG/4 ML VIAL IV SCH ×3 (05:59→21:21)
[2016-11-29] MEDS: DIGOXIN 0.5 MG/2 ML (250 MCG /ML) AMPULE IV SCH ×3 (05:59→21:21)
[2016-11-29] MEDS: GLIMEPIRIDE 2 MG TAB PO SCH (06:45)
[2016-11-29] MEDS: MetFORMIN 1000 MG IMMED REL TAB PO SCH ×2 (06:45→16:36)
[2016-11-29] MEDS: AMIODARONE 360 MG/200 ML RTU IV SCH ×2 (08:19→20:28)
[2016-11-29] MEDS: FERROUS SULFATE 324 MG TAB PO SCH (08:20)
[2016-11-29] MEDS: POTASSIUM CHLORIDE 20 MEQ TAB PO SCH ×2 (08:20→16:37)
[2016-11-29] MEDS ORDERED: Magnesium Sulfate 2 gm/D5W 2 GM/50 ML RTU IV ONE (09:00)
--- NOTE | 2016-11-29 12:08 | PCM.CARD ---
- Subjective Current Assessment: No New Symptoms (Patient mentions to me that he is feeling better and his swelling is getting better. No orthopnea or PND.) Vital Signs: Last Vital Signs Temp 97.7 F 11/29/16 07:50 Pulse 111 11/29/16 07:56 Resp 18 11/29/16 07:56 BP 90/65 L 11/29/16 09:59 Pulse Ox 99 11/29/16 07:56 EKG Rhythm: Atrial Fibrillation Heart Sounds: S1 & S2 (Heart sounds irregular lungs bilateral air entry with diminished sounds at the bases) - Assessment/Plan (1) Atrial fibrillation with RVR Acute I48.91 - UNSPECIFIED ATRIAL FIBRILLATION Present on Admission: Yes Comment/Plan: Rates under better control. Patient is still receiving amiodarone therapy. In view of borderline blood pressure I will initiate digoxin. I will give digitalizing doses and subsequently patient will need standing therapy with digoxin as felt appropriate. (2) CHF, acute Acute I50.9 - HEART FAILURE, UNSPECIFIED Present on Admission: Yes combined I50.41 - Acute combined systolic (congestive) and diastolic ( congestive) heart failure Comment/Plan: This is better and education was given to the patient. (3) DM2 (diabetes mellitus, type 2) Chronic E11.9 - TYPE 2 DIABETES MELLITUS WITHOUT COMPLICATIONS Present on Admission: Yes with neurologic complications Comment/Plan: Diet was discussed. (4) Supratherapeutic INR Acute R79.1 - ABNORMAL COAGULATION PROFILE Present on Admission: Yes Comment/Plan: Patient's INR is subtherapeutic and the in view of the prosthetic valve I will initiate Lovenox until his INR is therapeutic. Also the hemoglobin will have to be monitored closely as there was a drop in patient's hemoglobin. Also I will not increase the Coumadin dose by significant amount because now the patient is on amiodarone and this interacts with the dose. (5) Cardiomyopathy Acute I42.9 - CARDIOMYOPATHY, UNSPECIFIED Comment/Plan: I discussed this diagnosis and its implications with the patient at length. Once stable patient may need evaluation for cardiomyopathy and to rule out any ischemic etiologies. He might also need a electrophysiology evaluation when stable.
[2016-11-29] MEDS: CEFTRIAXONE 1 GM in D5W 100 ML IV SCH (12:32)
[2016-11-29] MEDS: ENOXAPARIN 100 MG PFS SQ SCH ×2 (13:09→23:36)
[2016-11-29] MEDS: NS 1,000 ML IV SCH (15:36)
--- NOTE | 2016-11-29 16:16 | GENMEDPROG ---
Subjective Note: Patient in bed responsive follows commands. Weak and fatigued. Denies any PND orthopnea reports no chest pain palpitations syncope or near syncope. BP borderline low. Notes Reviewed: Yes Events from last night noted and discussed with Clinical Staff Current Medication List: Reviewed Currently: Reports: Cough, Wheezing, NELSON, SOB, Sputum, Reflux Sx DVT Prophylaxis: Yes - Physical Examination Vital Signs and I&O: Last Vital Signs Temp 97.5 F 11/29/16 15:37 Pulse 107 11/29/16 15:37 Resp 11/29/16 15:37 BP 87/60 L 11/29/16 15:37 Pulse Ox 92 11/29/16 15:37 Oxygen Pulse Oxygen Saturation 92 O2 Device Nasal Cannula Oxygen Flow Rate 1 Fraction of Inspired Oxygen ( FIO2) Intake & Output 11/26/16 11/27/16 11/28/16 11/29/16 23:59 23:59 23:59 23:59 Intake Total 3396 621 Output Total 300 8038 2850 Balance -300 171 -2459 Patient's weight 84.482 kg 84.368 kg General: Alert, Oriented x3, Cooperative, Moderate distress HEENT: Normal, PERRLA, EOMI, Anicteric Sclera Neck: Non-tender, Normal inspection, Limited range of motion, Painful range of motion, JVD Lymphatics: Normal Respiratory: Accessory Muscle Use, Diminished, Rales, Rhonchi, Wheezes Cardiovascular: Normal S1, Normal S2, Murmurs, Irregular, Other (Metalic click) GI: Normal bowel sounds, Soft, Non tender, No hepatospenomegaly, No masses Extremities/Musculoskeletal: Edema, Cyanosis Skin: Warm,Dry and Intact, No rashes, No breakdown, No significant lesion Neurological: Normal speech, Normal tone, Cranial nerves 3-12 NL Psych/Mental Status: Anxious Lab/DI/Studies Reviewed: Allergies No Known Allergies Allergy (Verified 11/27/16 13:21) 11/29/16 02:35 11/29/16 02:35 Last Vital Signs Temp 97.5 F 11/29/16 15:37 Pulse 107 11/29/16 15:37 Resp 11/29/16 15:37 BP 87/60 L 11/29/16 15:37 Pulse Ox 92 11/29/16 15:37 - Assessment (1) CHF, acute Acute I50.9 - HEART FAILURE, UNSPECIFIED Qualifiers: Congestive heart failure type: combined Qualified Code(s): I50.41 - Acute combined systolic (congestive) and diastolic (congestive) heart failure Comment/Plan: 2D echo shows EF less than 20% and severe right ventricle systolic dysfunction. Will optimize medical regimen. Follow by Cardiology. (2) Atrial fibrillation with RVR Acute I48.91 - UNSPECIFIED ATRIAL FIBRILLATION Comment/Plan: Continue amiodarone, keep K more than 4 magnesium more than 2. (3) Supratherapeutic INR Acute R79.1 - ABNORMAL COAGULATION PROFILE Comment/Plan: INR 2.6 today. Will restart Coumadin, keep INR between 2 and 3 (4) Anemia Acute D64.9 - ANEMIA, UNSPECIFIED Qualifiers: Anemia type: unspecified type Qualified Code(s): D64.9 - Anemia, unspecified Comment/Plan: Hemoglobin improved after blood transfusion (5) DM2 (diabetes mellitus, type 2) Chronic E11.9 - TYPE 2 DIABETES MELLITUS WITHOUT COMPLICATIONS Qualifiers: Diabetes mellitus complication status: with neurologic complications Comment/Plan: Continue oral agents and ADA diet ,continue sliding scale and Accu -Cheks. (6) UTI (urinary tract infection) Acute N39.0 - URINARY TRACT INFECTION, SITE NOT SPECIFIED Qualifiers: Urinary tract infection type: acute cystitis Hematuria presence: without hematuria Qualified Code(s): N30.00 - Acute cystitis without hematuria Comment/Plan: Continue Rocephin. Urine culture growing E coli, final susceptibility pending. Case Care Discussed with: Patient, Consultants, Family, Nursing Staff, Spray Unit Feeder Education/Counseling Given To: Patient Education/Counseling Given Regarding: Diagnosis, Treatment, Prognosis, Follow Up Total Time: 50 min . Critical Care: No Code: 47108 (12+)
[2016-11-29] MEDS: This patient is receiving warfarin therapy SCH (16:36)
[2016-11-29] MEDS: WARFARIN 6 MG TAB PO SCH (16:37)
[2016-11-29] MEDS: ACETAMINOPHEN 325 MG/TAB TABLET PO PRN (23:36)
[2016-11-30] MEDS: Albuterol/Ipratropium Neb 3 ML NEB NEB SCH ×2 (01:53→07:52)
[2016-11-30] MEDS: DIGOXIN 0.5 MG/2 ML (250 MCG /ML) AMPULE IV SCH (02:04)
[2016-11-30 04:54] LABS: BLOOD UREA NITROGEN 28 MG/DL (9-20); CALCIUM 8.2 MG/DL (8.4-10.2); CALCULATED OSMOLALITY 268 MOs/Kg (270-290); CHLORIDE 100 mEq/L (98-107); GLUCOSE 139 MG/DL (70-99); SODIUM LEVEL 135 mEq/L (137-146)
[2016-11-30 04:56] LABS: PT-INR 2.1
[2016-11-30 05:11] VITALS: BMI 26.2
[2016-11-30] MEDS: FUROSEMIDE 40 MG/4 ML VIAL IV SCH ×2 (05:39→20:32)
[2016-11-30] MEDS: REGULAR INSULIN 100 UNITS/ML - 3 ML VIAL SQ SCH ×4 (05:39→21:26)
[2016-11-30] MEDS: AMIODARONE 360 MG/200 ML RTU IV SCH (08:57)
[2016-11-30] MEDS: POTASSIUM CHLORIDE 20 MEQ TAB PO SCH ×2 (08:59→17:33)
[2016-11-30] MEDS: MetFORMIN 1000 MG IMMED REL TAB PO SCH ×2 (08:59→17:31)
[2016-11-30] MEDS: GLIMEPIRIDE 2 MG TAB PO SCH (08:59)
[2016-11-30] MEDS: Magnesium Sulfate 2 gm/D5W 2 GM/50 ML RTU IV SCH ×4 (09:37→11:15)
--- NOTE | 2016-11-30 09:46 | PCM.CARD ---
- Subjective Reason for visit: For decompensated heart failure, severe left ventricular dysfunction and valvular heart disease with mechanical AVR. Current Assessment: No New Symptoms, Edema. negative: Chest Pain, Nausea, Orthopnea, Palpitations, Shortness of Breath, Vomiting He relates that I have seen him once in the past perioperatively, he had mechanical aortic valve replacement [facility]1996 and has had little or no cardiology follow-up in none in the last 5-10 years. He relates is well until a month ago when he developed fatigue exercise intolerance and progressive edema. Despite having a severely reduced ejection fraction and being obvious heart failure he has no complaints of shortness of breath he has had no chest pain or syncope. Vital Signs: Last Vital Signs Temp 97.8 F 11/30/16 04:00 Pulse 105 11/30/16 09:00 Resp 16 11/30/16 09:00 BP 97/69 L 11/30/16 09:00 Pulse Ox 98 11/30/16 09:00 PE: He appears chronically ill and older than his age Respiratory: Diminished Jugular Vein Distention: Mild Pulse Rhythm: Irregular EKG Rhythm: Atrial Fibrillation (Controlled rate) Heart Sounds: Murmur (One a 6 ejection murmur, no AR normal closing sound of AVR ). negative: S3 Edema Type: Pitting (Bilateral lower extremity edema) Edema Degree: 4+ Edema Skin Appearance: Weeping Lab/DI Results Reviewed: Laboratory Tests 11/28/16 11/29/16 11/29/16 04:25 02:35 02:35 Hgb 7.9 L D 9.7 L D Potassium Estimated GFR (MDRD) Magnesium Wit-S-Rblqncuodpv Pept 8620 H 11/30/16 03:35 Hgb Potassium 4.2 Estimated GFR (MDRD) > 60 Magnesium 1.40 L Ioc-U-Djbrbbhwjik Pept Laboratory Tests 11/30/16 03:35 INR 2.1 - Plan I am unable to pull up in assessment and plan for [employer]. Atrial fibrillation persistent rate controlled, continue digoxin start a very low-dose of beta-lyric and stop amiodarone. He will continue anticoagulation with a goal INR of 2-3.5. I would consider cardioversion if I am assured he is therapeutically anticoagulated for 3 weeks. Cardiomyopathy, severe with heart failure and low blood pressure. I will add a low-dose of a beta-lyric for heart rate control hold on Louie and Arb in reduce his diuretic as he has had a marked diuresis. He require an ischemia evaluation electively. Mechanical AVR, stable normal function by echo continue anticoagulation with goal INR of 2-3.5.
[2016-11-30] MEDS: CEFTRIAXONE 1 GM in D5W 100 ML IV SCH (11:07)
[2016-11-30] MEDS: FERROUS SULFATE 324 MG TAB PO SCH (11:07)
--- NOTE | 2016-11-30 12:52 | GENMEDPROG ---
Subjective Note: Patient in bed responsive follows command. Looks better and feels better. Denies any dyspnea at rest PND or orthopnea. Palpitations have improved as well. No syncope or near syncope. P.o. intake fair, no hypoglycemia. Notes Reviewed: Yes Events from last night noted and discussed with Clinical Staff Current Medication List: Reviewed Currently: Reports: Cough, Wheezing, NELSON, SOB, Sputum, Reflux Sx DVT Prophylaxis: Yes - Physical Examination Vital Signs and I&O: Last Vital Signs Temp 97.6 F 11/30/16 11:55 Pulse 93 11/30/16 11:55 Resp 11/30/16 11:55 BP 96/70 L 11/30/16 11:55 Pulse Ox 96 11/30/16 11:55 Oxygen Pulse Oxygen Saturation 96 O2 Device Room Air Oxygen Flow Rate 1 Fraction of Inspired Oxygen ( FIO2) Intake & Output 11/27/16 11/28/16 11/29/16 11/30/16 23:59 23:59 23:59 23:59 Intake Total 3396 1041 897 Output Total 300 1105 3950 1325 Balance -300 307 -5866 -634 Patient's weight 84.482 kg 84.368 kg 82.191 kg 80.603 kg General: Alert, Oriented x3, Cooperative, No acute distress HEENT: Normal, PERRLA, EOMI, Anicteric Sclera Neck: Non-tender, Limited range of motion, JVD Lymphatics: Normal Respiratory: Diminished, Rhonchi Cardiovascular: Normal S1, Normal S2, Murmurs, Irregular GI: Normal bowel sounds, Soft, Non tender, No hepatospenomegaly, No masses Extremities/Musculoskeletal: Edema, Cyanosis, DJD Skin: Warm,Dry and Intact, No rashes, No breakdown Neurological: Normal speech, Cranial nerves 3-12 NL Psych/Mental Status: Anxious Last Vital Signs Temp 97.6 F 11/30/16 11:55 Pulse 93 11/30/16 11:55 Resp 11/30/16 11:55 BP 96/70 L 11/30/16 11:55 Pulse Ox 96 11/30/16 11:55 Lab/DI/Studies Reviewed: Last Vital Signs Temp 97.6 F 11/30/16 11:55 Pulse 93 11/30/16 11:55 Resp 18 11/30/16 11:55 BP 96/70 L 11/30/16 11:55 Pulse Ox 96 11/30/16 11:55 Allergies No Known Allergies Allergy (Verified 11/27/16 13:21) 11/29/16 02:35 11/30/16 03:35 Abnormal Lab Results 11/29/16 11/29/16 11/29/16 02:35 16:47 20:41 PT Sodium BUN Glucose POC Capillary Glucose 118 H 148 H Calculated Osmolality Calcium Magnesium Dey-O-Nubnitubxvc Pept 8620 H 11/30/16 11/30/16 11/30/16 03:35 03:35 05:21 PT 21.7 H Sodium 135 L BUN 28 H Glucose 139 H POC Capillary Glucose 154 H Calculated Osmolality 268 L Calcium 8.2 L Magnesium 1.40 L Qqz-C-Ypprubdzhky Pept 11/30/16 12:04 PT Sodium BUN Glucose POC Capillary Glucose 201 H Calculated Osmolality Calcium Magnesium Bcd-I-Alffkktdbkc Pept - Assessment (1) CHF, acute Acute I50.9 - HEART FAILURE, UNSPECIFIED Qualifiers: Congestive heart failure type: combined Qualified Code(s): I50.41 - Acute combined systolic (congestive) and diastolic (congestive) heart failure Comment/Plan: 2D echo shows EF less than 20% and severe right ventricle systolic dysfunction. Will optimize medical regimen. Follow by Cardiology. (2) Atrial fibrillation with RVR Acute I48.91 - UNSPECIFIED ATRIAL FIBRILLATION Comment/Plan: Continue amiodarone, keep K more than 4 magnesium more than 2. (3) Anemia Acute D64.9 - ANEMIA, UNSPECIFIED Qualifiers: Anemia type: unspecified type Qualified Code(s): D64.9 - Anemia, unspecified Comment/Plan: Hemoglobin improved after blood transfusion (4) DM2 (diabetes mellitus, type 2) Chronic E11.9 - TYPE 2 DIABETES MELLITUS WITHOUT COMPLICATIONS Qualifiers: Diabetes mellitus complication status: with neurologic complications Comment/Plan: Continue oral agents and ADA diet ,continue sliding scale and Accu -Cheks. (5) UTI (urinary tract infection) Acute N39.0 - URINARY TRACT INFECTION, SITE NOT SPECIFIED Qualifiers: Urinary tract infection type: acute cystitis Hematuria presence: without hematuria Qualified Code(s): N30.00 - Acute cystitis without hematuria Comment/Plan: Continue Rocephin. Urine culture growing E coli, susceptible multiple antibiotics (6) Supratherapeutic INR Acute R79.1 - ABNORMAL COAGULATION PROFILE Comment/Plan: Continue Coumadin for INR between 2 and 3 Case Care Discussed with: Patient, Consultants, Family, Nursing Staff, Pin Pusher Education/Counseling Given To: Patient Education/Counseling Given Regarding: Diagnosis, Treatment, Prognosis, Follow Up Total Time: 45 min . Critical Care: No Code: 45264 (12+)
[2016-11-30] MEDS: WARFARIN 6 MG TAB PO SCH (17:32)
[2016-11-30] MEDS: This patient is receiving warfarin therapy SCH (17:32)
[2016-11-30] MEDS: MAGNESIUM OXIDE 400 MG TAB PO SCH (17:32)
[2016-11-30] MEDS: NS 1,000 ML IV SCH (17:34)
[2016-11-30] MEDS: METOPROLOL TARTRATE 25 MG TAB PO SCH (20:32)
[2016-11-30] MEDS ORDERED: ONDANSETRON HCL 4 MG/2 ML VIAL IV PRN (21:04)
[2016-11-30] MEDS ORDERED: TEMAZEPAM 15 MG CAP PO PRN (21:04)
[2016-11-30] MEDS ORDERED: BISACODYL 5 MG TAB PO PRN (21:04)
[2016-11-30] MEDS ORDERED: DOCUSATE-SENNA CONCENTRATE TAB PO PRN (21:04)
[2016-11-30] MEDS ORDERED: GUAIFEN 100 MG-DEXTROMETH 10 MG PER 5 ML PO PRN (21:04)
[2016-11-30] MEDS ORDERED: PROMETHAZINE 25 MG/ML VIAL IV PRN (21:04)
[2016-11-30] MEDS ORDERED: Docusate Sodium 100 MG CAP PO PRN (21:04)
[2016-11-30] MEDS ORDERED: BENZONATATE 100 MG PERLES PO PRN (21:04)
[2016-12-01] MEDS: REGULAR INSULIN 100 UNITS/ML - 3 ML VIAL SQ SCH ×4 (04:32→20:48)
[2016-12-01 06:30] LABS: BLOOD UREA NITROGEN 22 MG/DL (9-20); CALCIUM 8.1 MG/DL (8.4-10.2); CALCULATED OSMOLALITY 259 MOs/Kg (270-290); CHLORIDE 99 mEq/L (98-107); GLUCOSE 59 MG/DL (70-99); SODIUM LEVEL 134 mEq/L (137-146)
[2016-12-01 06:37] LABS: PT-INR 2.3
--- NOTE | 2016-12-01 07:37 | PCM.CARD ---
- Subjective Reason for visit: For heart failure and atrial fibrillation Current Assessment: No New Symptoms, Edema. negative: Chest Pain, Nausea, Orthopnea, Palpitations, Shortness of Breath, Vomiting Vital Signs: Last Vital Signs Temp 98.4 F 12/01/16 04:18 Pulse 88 12/01/16 06:20 Resp 18 12/01/16 04:18 BP 98/64 L 12/01/16 04:18 Pulse Ox 94 12/01/16 04:18 Vital Signs Temp 98.4 F 12/01/16 04:18 Pulse 88 12/01/16 06:20 Resp 18 12/01/16 04:18 BP 98/64 L 12/01/16 04:18 Pulse Ox 94 12/01/16 04:18 Intake & Output 11/29/16 11/30/16 12/01/16 23:59 23:59 23:59 Intake Total 1041 1852 216 Output Total 3950 2700 775 Balance -2909 -848 -559 Patient's weight 181 lb 3.2 oz 177 lb 11.2 oz 171 lb 1.6 oz Intake: IV Fluids 261 937 216 Left Outer Forearm 400 Right Antecubital 143 Right Inner Forearm 384 216 Peripheral Right Wrist 118 153 Oral 780 915 Output: Urine 3950 2700 775 Other: Elimination Method Urinal Urinal Urinal Urine Color Yellow Yellow Yellow Number of Bowel Movements 1 Stool Size Small Smear Small Stool Description Soft Soft Formed Brown Brown Brown Elimination Comment pt urinated on the floor Wt Change in KG 1.588 kg gained 3.765 kg loss 2.994 kg loss Weight Change from 3.5 lb(s) gained 8.3 lb(s) loss 6.6 lb(s) loss Previous Weight Weight (Calculated 82.191 80.603 77.610 Kilograms) His weight is down 15 lb since hospital admission Respiratory: Normal - CTA. negative: Rales, Rhonchi, Wheezes Jugular Vein Distention: None Pulse Rhythm: Irregular EKG Rhythm: Atrial Fibrillation (Controlled rate, he is now on a low-dose beta- lyric) Heart Sounds: negative: S1 & S2, S3 (Variable 1st heart sound) Edema Type: Pitting Edema Degree: 3+ Lab/DI Results Reviewed: Selected Entries 11/27/16 11/28/16 11/29/16 20:55 05:27 05:00 Patient's 186 lb 4 oz 186 lb 181 lb 3.2 oz weight 11/30/16 12/01/16 05:10 04:18 Patient's 177 lb 11.2 oz 171 lb 1.6 oz weight Laboratory Tests 12/01/16 12/01/16 04:45 04:45 Hgb 9.5 L Potassium 4.3 Estimated GFR (MDRD) > 60 - Assessment/Plan (1) Heart failure Acute I50.9 - HEART FAILURE, UNSPECIFIED Present on Admission: Yes systolic Comment/Plan: Improved, I would continue IV diuretics 1 more day continue low-dose beta- lyric add spironolactone at this time with low blood pressure avoid Louie and Arb in reassess as an outpatient. I would certainly want to see compliance and a trial medical therapy before advising ICD therapy in this man. (2) Atrial fibrillation Chronic I48.91 - UNSPECIFIED ATRIAL FIBRILLATION Present on Admission: Yes persistent I48.1 - Persistent atrial fibrillation Comment/Plan: Improved rate controlled anticoagulated, we can consider attempts of cardioversion electively as an outpatient but I would want to see him consistently effectively anticoagulated for at least 21 days prior to that especially with a mechanical aortic valve. (3) H/O aortic valve replacement Chronic Z95.2 - PRESENCE OF PROSTHETIC HEART VALVE Comment/Plan: Stable normal function by echo, INR is therapeutic off Lovenox on warfarin
[2016-12-01] MEDS: MetFORMIN 1000 MG IMMED REL TAB PO SCH ×2 (08:48→17:44)
[2016-12-01] MEDS: POTASSIUM CHLORIDE 20 MEQ TAB PO SCH ×2 (08:48→17:45)
[2016-12-01] MEDS: MAGNESIUM OXIDE 400 MG TAB PO SCH ×3 (08:48→17:42)
[2016-12-01] MEDS: GLIMEPIRIDE 2 MG TAB PO SCH (08:48)
[2016-12-01] MEDS: METOPROLOL TARTRATE 25 MG TAB PO SCH ×2 (08:50→20:42)
[2016-12-01] MEDS: FUROSEMIDE 40 MG/4 ML VIAL IV SCH ×2 (08:50→20:42)
[2016-12-01] MEDS: DIGOXIN 0.125 MG TAB PO SCH (08:50)
[2016-12-01] MEDS: SPIRONOLACTONE 25 MG TAB PO SCH (09:36)
--- NOTE | 2016-12-01 10:08 | GENMEDPROG ---
Chief Complaint: Acute heart failure Subjective Note: Doing well today, says his breathing is much better, still has some slight lower extremity edema but much improved. He is hopeful that he will go home tomorrow. Notes Reviewed: Yes Events from last night noted and discussed with Clinical Staff Current Medication List: Reviewed Currently: Reports: Reflux Sx DVT Prophylaxis: Yes - Physical Examination Vital Signs and I&O: Last Vital Signs Temp 97.9 F 12/01/16 08:30 Pulse 102 12/01/16 08:30 Resp 18 12/01/16 08:30 BP 98/56 L 12/01/16 08:30 Pulse Ox 92 12/01/16 08:30 Oxygen Pulse Oxygen Saturation 92 O2 Device Room Air Oxygen Flow Rate 1 Fraction of Inspired Oxygen ( FIO2) Intake & Output 11/29/16 11/30/16 12/01/16 12/02/16 06:59 06:59 06:59 06:59 Intake Total 2897 1197 1531 Output Total 3379 3500 2925 Balance -956 -3915 -1109 Patient's weight 82.191 kg 80.603 kg 77.61 kg General: Alert, Oriented x3, No acute distress, Well appearing, Well nourished, Other (Normal and appropriate affect) HEENT: EOMI (Sclera white) Neck: Normal Trachea alignment, Normal inspection Respiratory: Normal - CTA. negative: Rales, Rhonchi, Wheezes Cardiovascular: Regular rate, No Gallops,Rubs/Murmurs GI: Normal bowel sounds, Soft, Non tender (non distended) Extremities/Musculoskeletal: Other (Normal Tone). negative: Edema, Cyanosis Lab/DI/Studies Reviewed: Laboratory Tests 11/29/16 12/01/16 12/01/16 02:35 04:45 04:45 Hgb 9.7 L D INR 2.3 Potassium 4.3 BUN 22 H Creatinine 0.90 12/01/16 04:45 Hgb 9.5 L INR Potassium BUN Creatinine - Assessment (1) Anemia Acute D64.9 - ANEMIA, UNSPECIFIED Qualifiers: Anemia type: unspecified type Qualified Code(s): D64.9 - Anemia, unspecified Comment/Plan: Hemoglobin improved after blood transfusion, currently stable. (2) Atrial fibrillation with RVR Acute I48.91 - UNSPECIFIED ATRIAL FIBRILLATION Comment/Plan: Continue amiodarone, keep K more than 4 magnesium more than 2. Therapeutic on Coumadin. (3) CHF, acute Acute I50.9 - HEART FAILURE, UNSPECIFIED Qualifiers: Congestive heart failure type: combined Qualified Code(s): I50.41 - Acute combined systolic (congestive) and diastolic (congestive) heart failure Comment/Plan: 2D echo shows EF less than 20% and severe right ventricle systolic dysfunction. Will optimize medical regimen. Follow by Cardiology. (4) Cardiomyopathy Acute I42.9 - CARDIOMYOPATHY, UNSPECIFIED (5) DM2 (diabetes mellitus, type 2) Chronic E11.9 - TYPE 2 DIABETES MELLITUS WITHOUT COMPLICATIONS Qualifiers: Diabetes mellitus complication status: with neurologic complications Comment/Plan: Continue oral agents and ADA diet ,continue sliding scale and Accu -Cheks. - Plan Continue IV diuresis today, cardiology following. Likely can be discharged home on optimize medications tomorrow. Currently on Coumadin, planned 3 weeks of anticoagulation, and then will consider outpatient cardioversion. Total Time: 41
[2016-12-01] MEDS: FERROUS SULFATE 324 MG TAB PO SCH (11:47)
[2016-12-01] MEDS: CEFTRIAXONE 1 GM in D5W 100 ML IV SCH (11:47)
[2016-12-01] MEDS ORDERED: HYDROCORTISONE 2.5% CREAM TOP SCH (12:01)
[2016-12-01] MEDS: SIMETHICONE 80 MG TAB PO PRN ×3 (12:02→20:48)
[2016-12-01] MEDS: HYDROCORTISONE 2.5% CREAM TOP PRN (13:18)
[2016-12-01] MEDS: This patient is receiving warfarin therapy SCH ×2 (17:41→17:42)
[2016-12-01] MEDS: WARFARIN 6 MG TAB PO SCH (17:44)
[2016-12-01] MEDS: ACETAMINOPHEN 325 MG/TAB TABLET PO PRN (21:11)
[2016-12-02] MEDS: HYDROCORTISONE 2.5% CREAM TOP PRN (00:19)
[2016-12-02] MEDS: GLUCOSE (ORAL GEL) 15 GM TUBE PO PRN ×2 (04:47→05:07)
[2016-12-02] MEDS: REGULAR INSULIN 100 UNITS/ML - 3 ML VIAL SQ SCH ×2 (04:48→12:19)
[2016-12-02 06:07] LABS: PT-INR 2.8
[2016-12-02] MEDS: SIMETHICONE 80 MG TAB PO PRN (07:06)
[2016-12-02] MEDS: MetFORMIN 1000 MG IMMED REL TAB PO SCH (08:12)
[2016-12-02] MEDS: SPIRONOLACTONE 25 MG TAB PO SCH (08:12)
[2016-12-02] MEDS: POTASSIUM CHLORIDE 20 MEQ TAB PO SCH (08:12)
[2016-12-02] MEDS: DIGOXIN 0.125 MG TAB PO SCH (08:12)
[2016-12-02] MEDS: FUROSEMIDE 40 MG/4 ML VIAL IV SCH (08:12)
[2016-12-02] MEDS: MAGNESIUM OXIDE 400 MG TAB PO SCH ×2 (08:13→12:22)
[2016-12-02] MEDS: GLIMEPIRIDE 2 MG TAB PO SCH (08:13)
[2016-12-02] MEDS: METOPROLOL TARTRATE 25 MG TAB PO SCH (08:13)
--- NOTE | 2016-12-02 08:39 | PCM.CARD ---
- Subjective Reason for visit: For atrial fibrillation and heart failure Current Assessment: No New Symptoms. negative: Chest Pain, Edema, Hypertension , Palpitations, Shortness of Breath Vital Signs: Last Vital Signs Temp 97.5 F 12/02/16 08:00 Pulse 110 12/02/16 08:00 Resp 18 12/02/16 08:00 BP 92/71 L 12/02/16 08:00 Pulse Ox 93 12/02/16 08:00 Selected Entries 11/28/16 11/29/16 11/30/16 05:27 05:00 05:10 Patient's 186 lb 181 lb 3.2 oz 177 lb 11.2 oz weight 12/01/16 12/02/16 04:18 04:49 Patient's 171 lb 1.6 oz 166 lb 3.2 oz weight Vital Signs Temp 97.5 F 12/02/16 08:00 Pulse 110 12/02/16 08:00 Resp 18 12/02/16 08:00 BP 92/71 L 12/02/16 08:00 Pulse Ox 93 12/02/16 08:00 Intake & Output 11/30/16 12/01/16 12/02/16 23:59 23:59 23:59 Intake Total 1852 1116 60 Output Total 2700 1350 700 Balance -606 -791 -602 Patient's weight 177 lb 11.2 oz 171 lb 1.6 oz 166 lb 3.2 oz Intake: IV Fluids 937 336 Left Outer Forearm 400 120 Right Inner Forearm 384 216 Peripheral Right Wrist 153 Oral 915 780 60 Output: Urine 2700 1350 700 Other: Elimination Method Urinal Urinal Urinal Brief/Pediatric Diaper Incontinent Number of Unmeasured 1 Voids Urine Color Yellow Straw Yellow Number of Bowel Movements 1 1 Stool Size Smear Smear Small Stool Description Soft Brown Soft Brown Brown Wt Change in KG 3.765 kg loss 2.994 kg loss 2.223 kg loss Weight Change from 8.3 lb(s) loss 6.6 lb(s) loss 4.9 lb(s) loss Previous Weight Weight (Calculated 80.603 77.610 75.387 Kilograms) Respiratory: Diminished Jugular Vein Distention: None Pulse Rhythm: Irregular EKG Rhythm: Atrial Fibrillation Heart Sounds: negative: S1 & S2 Edema Degree: 4+ Edema Skin Appearance: Weeping Lab/DI Results Reviewed: Laboratory Tests 12/01/16 12/02/16 04:45 04:55 Hgb 9.5 L INR 2.8 - Assessment/Plan (1) Heart failure Acute I50.9 - HEART FAILURE, UNSPECIFIED Present on Admission: Yes systolic acute I50.21 - Acute systolic (congestive) heart failure Comment/Plan: He continues to steadily improved but still has marked peripheral edema and weeping of the lower extremities. His just retired as a dietetic technician both of the 1 to go home and continue treatment as an outpatient. I do not think it is optimal but I think it is of viable option. I think he should have an attempted cardioversion after 3 weeks of supervise pro times at therapeutic I like to see him to come to my office to have pro times done twice weekly on Wednesday and with point of care INR. Continue his current medications he is not on a vasodilators because of hypotension. (2) Atrial fibrillation Chronic I48.91 - UNSPECIFIED ATRIAL FIBRILLATION Present on Admission: Yes persistent I48.1 - Persistent atrial fibrillation Comment/Plan: Rate controlled continue anticoagulation with valvular heart disease. He is now on low-dose beta-lyric (3) H/O aortic valve replacement Chronic Z95.2 - PRESENCE OF PROSTHETIC HEART VALVE Comment/Plan: Stable continue anticoagulant INR goal 2-3.5
[2016-12-02 12:03] VITALS: BP 95/60; TEMP 97.6
[2016-12-02] MEDS: CEFTRIAXONE 1 GM in D5W 100 ML IV SCH (12:22)
[2016-12-02] MEDS: FERROUS SULFATE 324 MG TAB PO SCH (12:22)
--- NOTE | 2016-12-02 14:10 | PCM.DCS92 ---
- Final/Secondary Discharge Diagnosis (1) Anemia Acute D64.9 - ANEMIA, UNSPECIFIED Present on Admission: Yes unspecified type I V F B H O D64.9 - Anemia, unspecified Comment: Hemoglobin improved after blood transfusion, currently stable. (2) Atrial fibrillation with RVR Acute I48.91 - UNSPECIFIED ATRIAL FIBRILLATION Present on Admission: Yes Comment: Continue amiodarone, keep K more than 4 magnesium more than 2. Therapeutic on Coumadin. He will follow up outpatient cardiology office for point of care INRs, plan is for him to be potentially cardioverted as an outpatient once he has been on therapeutic anticoagulation for 21 days. (3) CHF, acute Acute I50.9 - HEART FAILURE, UNSPECIFIED Present on Admission: Yes combined I50.41 - Acute combined systolic (congestive) and diastolic ( congestive) heart failure Comment: 2D echo shows EF less than 20% and severe right ventricle systolic dysfunction. Ideally, the senior marketing associate and I feel that it would be better for the patient to stay another day or 2 to optimize his fluid status, but since the patient is are very anxious to return home, and he is not in any respiratory distress he can be discharged today. He will discharge low-dose beta-lyric, and torsemide. His prior valsartan was discontinued. Due to hypotension. He will be followed very closely in the Cardiology Clinic as an outpatient. (4) Cardiomyopathy Acute I42.9 - CARDIOMYOPATHY, UNSPECIFIED C (5) DM2 (diabetes mellitus, type 2) Chronic E11.9 - TYPE 2 DIABETES MELLITUS WITHOUT COMPLICATIONS Present on Admission: Yes with neurologic complications D D P D D L C Comment: Continue oral agents and ADA diet ,continue sliding scale and Accu- Cheks. Discharge Disposition: Home Discharge Condition: Improved Cognitive Discharge Status: Unimpaired Fuctional Discharge Status: Independent Forms: ED Discharge Instructions Physician Follow up/Referrals: Rosanna Hernández DO [Primary Care Provider] - 12/04/16 3:15 pm Home Medications / New Prescriptions: New Cephalexin Monohydrate [Keflex] 500 mg PO Q8H #9 cap Digoxin [Lanoxin, Digitek] 0.125 mg PO DAILY #30 tablet Metoprolol Tartrate [Lopressor] 12.5 mg PO BID #60 tablet Spironolactone [Aldactone] 12.5 mg PO DAILY #30 tablet Warfarin Sodium [Coumadin] 6 mg PO 1800 #30 tablet Continue Ferrous Sulfate [Feosol] 325 mg PO DAILY Glimepiride [Amaryl] 4 mg PO DAILY #30 tablet MetFORMIN (Immediate Release) [GLUCOPHAGE Immed Release] 1,000 mg PO BID #60 tablet Discontinued Valsartan [Diovan] 40 mg PO DAILY Warfarin Sodium [Coumadin] 10 mg PO DAILY O2 Device: Room Air Diet at Discharge: Diabetic Activity: No Restrictions - DC Summary Notes HPI/Notes: 66-year-old male admitted to the hospital with new onset atrial fibrillation and heart failure symptoms. He was found on echocardiography to have severe diastolic dysfunction. He was treated with IV Lasix, beta-lyric, due to hypotension he has not been able to placed on Louie or Arb. Coumadin dosing was adjusted. He was seen by Cardiology while here in the hospital. Plan is for him to be on full anticoagulation for the next 3 weeks, closely followed by Cardiology as an outpatient. After he has been therapeutic for 3 weeks, they will consider attempted cardioversion. Please see the hospital problems and discharge problems above for details of the hospital course including diagnostics and treatment. The plan of care including medications, prognosis, follow-up including alarm symptoms for which medical care should be sought were reviewed with the patient and any available family members/caretakers. The patient is agreeable to discharge today, and all questions were answered by me to their satisfaction. Hospital Course Note:: Discharge summary on patient named VIKTORIYA DWYER admitted to [facility] on 11/27/16 by Jean Kennedy MD. Date of discharge is []. Total Time: 42 - Physical Exam Vital Signs: Last Vital Signs Temp 97.6 F 12/02/16 12:00 Pulse 97 12/02/16 12:00 Resp 18 12/02/16 12:00 BP 95/60 L 12/02/16 12:00 Pulse Ox 98 12/02/16 12:00 Oxygen Pulse Oxygen Saturation 98 O2 Device Room Air Oxygen Flow Rate 1 Fraction of Inspired Oxygen ( FIO2) Constitutional: No apparent distress, Alert Oriented to: Time, Person, Place - HEENT Head: Normal Eye: Normal Oropharynx: Normal ENT EAC: Normal TMJ: Normal Nose: No Symptoms Reported - Respiratory/Cardiovascular Respiratory: Diminished - GI Auscultation: Normal Palpation: Normal Tenderness: Non tender Rectal Exam: Deferred - Musculoskeletal Back: Normal Extremities: Edema (Still with significant lower extremity weeping edema about his bilateral lower extremities from the mid alvarez down.) - Integumentary Lymphatics: Normal - Neurologic Memory Impaired: Normal Cerebellar: Normal Mood Description: Anxious Thought: Coherent Perception: Normal
[2016-12-02 14:11] VITALS: PULSE 127
[2016-12-02] MEDS ORDERED: TORSEMIDE 20 MG TAB PO SCH (16:00)
== END 2016-12-02 14:50 | disposition home or self-care (01) | DRG 811 ==
LOC: ED 10:25 → EDINP 14:15 → PCU 17:01
PROVIDERS: ADMIT Internal Medicine; ATTEND Internal Medicine
PROC: 039B3ZZ Drainage of Right Radial Artery, Percutaneous Approach (ICD-10-PCS; 2016-11-27)
PROC: 30233N1 Transfusion of Nonautologous Red Blood Cells into Peripheral Vein, Percutaneous Approach (ICD-10-PCS; principal; 2016-11-28)
DX: D64.9 Anemia, unspecified (principal); I50.41 Acute combined systolic (congestive) and diastolic (congestive) heart failure; I95.9 Hypotension, unspecified; I42.9 Cardiomyopathy, unspecified; N30.00 Acute cystitis without hematuria; I48.91 Unspecified atrial fibrillation; I11.0 Hypertensive heart disease with heart failure; E11.9 Type 2 diabetes mellitus without complications; R79.1 Abnormal coagulation profile; I25.10 Atherosclerotic heart disease of native coronary artery without angina pectoris; Z90.49 Acquired absence of other specified parts of digestive tract; Z85.038 Personal history of other malignant neoplasm of large intestine; T45.515A Adverse effect of anticoagulants, initial encounter; E78.00 Pure hypercholesterolemia, unspecified; Z95.2 Presence of prosthetic heart valve; Z79.01 Long term (current) use of anticoagulants; Z86.73 Personal history of transient ischemic attack (TIA), and cerebral infarction without residual deficits; Z79.84 Long term (current) use of oral hypoglycemic drugs; Z79.899 Other long term (current) drug therapy
CPT/HCPCS: 36415; 36430; 36600; 71010; 80048; 80053; 80162; 81001; 82272; 82550; 82607; 82728; 82746; 82803; 82962; 83540; 83550; 83605; 83735; 83880; 84439; 84443; 84481; 84484; 85014; 85018; 85025; 85610; 85730; 86850; 86900; 86901; 86920; 87040; 87077; 87086; 87186; 90471; 90656; 90732; 93005; 93306; 94640; 96361; 96365; 96366; 96372; 96375; 99284; G0237; J0282; J0696; J1160; J1650; J1940; J3430; J3475; J3490; J7030; J7060; J7620; P9016; P9059